=== PATIENT | male | born 2000 | race African-American/Black ===

== ENCOUNTER 2023-01-23 16:08 | Emergency (ER) | payer MEDICAID, OTHER, SELFPAY ==
[2023-01-23 16:09] VITALS: BP 141/78; PULSE 95; RESP 14; TEMP 36.4; O2SAT 98; BMI 35.5
--- NOTE | 2023-01-23 16:37 | EDS_ITS ---
HPI History of Present Illness Chief Complaint: Lower Extremity Injury Informant: patient and EMS Narrative Narrative: 22-year-old male presenting to the emergency department chief complaint of right knee injury. 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 During the collision he collided with another player and is now unable to lift the leg up off the ground. Sports medicine physician on scene reported a possible patellar tendon rupture. He was placed in an air splint and transferred via EMS. He denies any other injuries. He states he has really no pain unless he attempts to move. [facility] Medical History Asthma Home Medications hydrocodone-acetaminophen 5-325mg 5mg-325mg 1 tab PO Q6H PRN PRN Pain 3 days #12 TABLETS 01/23/23 [Rx Last Taken Unknown] Allergy/AdvReac Type Severity Reaction Status Date / Time No Known Allergies Allergy Verified 01/23/23 16:12 Social History (Updated 01/23/23 @ 16:[address] Deon Russell DO) current gender identity: male Smoking Status: Never smoker ROS ROS ED Constitutional Constitutional ED: Denies chills, fever(s) or weight loss Eyes Eyes: Denies change in vision or diplopia ENT ENT ED: Denies ear pain, rhinorrhea or sore throat Cardiovascular Cardiovascular: Denies chest pain, orthopnea, palpitations or racing heartbeat Respiratory/Chest Respiratory/Chest: Denies cough, dyspnea or orthopnea Gastrointestinal Gastrointestinal: Denies abdominal pain, diarrhea, nausea or vomiting Genitourinary Genitourinary ED: Denies dysuria, hematuria or urinary frequency Musculoskeletal Musculoskeletal: Reports other Details: See history of present illness ; Denies arthralgias, back pain, myalgias or neck pain Integumentary Denies abscess or rash Neurologic Neurologic: Denies headache(s) or weakness Psychiatric Psychiatric: Denies anxiety, depression, suicidal ideation or suicidal thoughts Endocrine Endocrinology: Denies polydipsia, polyphagia or polyuria Allergic/Immunologic Allergic/Immunologic ED: Denies mouth swelling, tongue swelling or urticaria EXAM Physical Exam Const Vital Signs: 01/23/23 16:09 Temperature 97.6 F L Temperature Source Temporal Pulse Rate 95 Respiratory Rate 14 Blood Pressure 141/78 H Blood Pressure Mean 99 Pulse Ox 98 Oxygen Delivery Method Room Air Positive well nourished and well developed General Appearance ED: well developed HEENT Reports normocephalic, head/scalp atraumatic and moist mucous membranes Eyes PERRL and EOMs intact bilaterally Neck no lymphadenopathy, supple and no JVD Resp normal respiratory effort and clear to auscultation bilaterally Cardio regular rate, regular rhythm and no murmurs GI normal to inspection, nondistended, normoactive bowel sounds and non-tender Palpation: soft Back/Spine no CVA tenderness and normal ROM Extremity Extremity Narrative: Patient is unable to lift the leg up off the bed suggesting extensor mechanism is incomplete. He has a high riding patella. There is a palpable defect inferior to the patella suggestive of patellar tendon disruption. There is lo calized swelling. Neurovascular intact distal. Patient has painful movement. General Extremety ED: Negative for edema General Extremity: Negative for edema Neuro oriented x3 and CN's II-XII intact bilaterally Sensorium / Orientation: alert Motor Exam: strength 5/5 throughout Psych mental status grossly normal Mood & Affect: Negative for depressed or tearful Skin no rashes or lesions noted and no wounds MDM MDM MDM Narrative Medical decision making narrative: Patient was placed in a knee immobilizer. He is given crutches. I will write for pain medication. Patient is to follow-up with orthopedics through his football program when he returns to campus. A copy of his films will be sent with him. I will write a prescription for pain medication. Radiography Diagnostic Testing: Clinical Impression(s) from Imaging Studies Knee X-Ray 01/23/23 16:40 IMPRESSION: Soft tissue thickening of the patellar tendon suggests patellar tendon injury/tendinopathy. Electronically Signed: Inocencio Mei MD ([place]) at 17:24 EDT Reading Location ID and State: [facility] / [place] , Service support , Discharge Plan Triage Chief Complaint: Lower Extremity Injury ED Provider: Deon Russell Dx/Rx/DC Orders Clinical Impression: Tendon rupture, traumatic, patella Prescriptions: New hydrocodone-acetaminophen [hydrocodone-acetaminophen] 5-325 mg tablet 1 tab PO Q6H PRN PRN (Reason: Pain) 3 Days Qty: 12 0RF Primary Care Provider: Care Physician,No Primary Activity Restrictions/Additional Instructions: Please follow-up with orthopedics soon as possible Disposition Disposition: Home, Self Care
--- NOTE | 2023-01-23 16:40 | RAD_ITS ---
STUDY: X-RAY - RIGHT KNEE REASON FOR EXAM: Male, 22 years old. patellar tendon rupture / pain TECHNIQUE: 2 view(s) of the knee. COMPARISON: None. FINDINGS: Normal visualized distal femur. Normal visualized proximal tibia and fibula. Normal proximal tibiofibular articulation. Normal medial femorotibial compartment. Normal lateral femorotibial compartment. Patella edmund. There is no demonstrated joint effusion. There is diffuse thickening of the patellar tendon. RAD/Knee 1 or 2 Views IMPRESSION: Soft tissue thickening of the patellar tendon suggests patellar tendon injury/tendinopathy. Electronically Signed: Inocencio Mei MD ([place]) at 17:24 EDT Reading Location ID and State: [facility] / [place] , Service support ,
[2023-01-23] MEDS: Morphine 4 MG/ML Syringe IV (17:29)
[2023-01-23] MEDS: Ketorolac 30 MG/ML Syringe IV (17:29)
[2023-01-23 18:55] VITALS: BP 123/68
== END 2023-01-23 18:56 | disposition home or self-care (01) ==
PROVIDERS: Emergency Provider Emergency Medicine; Visit Provider Emergency Medicine
DX: S76.111A Strain of right quadriceps muscle, fascia and tendon, initial encounter (principal); W50.0XXA Accidental hit or strike by another person, initial encounter; Y93.61 Activity, american tackle football
CPT/HCPCS: 73560; 96374; 96375; 99285; A4216